=== PATIENT | male | born 1965 | race Two or more races ===

== ENCOUNTER 2016-09-11 19:03 | Emergency (ER) | payer OTHER ==
[2016-09-11] MEDS ORDERED: PROPARACAINE 0.5% 15 ML OPHT DROP LEFTEYE ONE (19:25)
[2016-09-11 19:30] VITALS: BP 137/75; PULSE 72; RESP 18; TEMP 97.9; O2SAT 96
[2016-09-11] MEDS ORDERED: PROPARACAINE 0.5% 15 ML OPHT DROP EACHEYE ONE (19:32)
--- NOTE | 2016-09-11 20:16 | UCPHY ---
H & P Time Seen by Provider: 09/11/16 19:46 Patient Type: Established HPI/ROS: CHIEF COMPLAINT: foreign body in eye HISTORY OF PRESENT ILLNESS: Patient is a 50-year-old male who presents to the emergency department with foreign body sensation in his left eye. The patient states he was at the [employer] when a glass broke in the store. He felt as though a piece of the glass went into his left eye. He now has mild discomfort in the left eye. No pain in the right eye per report. Denies any visual change. Patient sustained small abrasions on his fingers. No other injury. REVIEW OF SYSTEMS: Negative Past Medical/Surgical History: Denies Smoking Status: Never smoked Physical Exam: GENERAL: Well-appearing, in no acute distress, alert. Visual acuity: Noted. Eyelids: Normal inspection, everted for exam. There is a glass foreign body noted in his left eye. This is cube shaped with a 2-3 mm side. Conjunctiva and sclera: Left eye mildly injected. Right eye normal. No subconjunctival hemorrhage. No exudate. Corneas: Examined with fluorescein dye: Large abrasion in the left eye. This does overlie the pupil. No ulcer. No Mira sign. EOMs: Intact. Pupils: PERRL, normal accommodation. Anterior chambers: Normal inspection. No hyphema. No cells or flare. Posterior segments: Normal funduscopic exam Constitutional: Initial Vital Signs Temperature (C) 36.6 C 09/11/16 19:25 Heart Rate 72 09/11/16 19:25 Respiratory Rate 18 09/11/16 19:25 Blood Pressure 137/75 H 09/11/16 19:25 O2 Sat (%) 96 09/11/16 19:25 O2 Delivery Mode Room Air Allergies/Adverse Reactions: No Known Allergies Allergy (Unverified 06/07/11 10:47) Home Medications: Medication Instructions Recorded Diabetes Pill 09/11/16 oxyCODONE/APAP 5/325 [Percocet 1 - 2 tab PO Q4PRN PRN #9 tab 09/11/16 5/325 (*)] Medical Decision Making Procedures: Patient had his left eye irrigated with normal saline (500ml) ED Course/Re-evaluation: I discussed the plan with the patient and answered all his questions. Proparacaine drops were placed prior to examination. Examination included a slit -lamp. There was a notable foreign body in his left eye. After this foreign body was retrieved I did a complete examination to look for a 2nd foreign body. No was visualized. The patient did have noted corneal abrasion. I discussed this with the patient and answered all his questions. He was given ciprofloxacin drops. He will use these q.2 hours for the next 3 days. He will follow up with Ophthalmology tomorrow. Differential Diagnosis: My differential includes but is not limited to ocular foreign body, hyphema, globe rupture, conjunctivitis, corneal abrasion, corneal abscess - Data Points Medications Given: Discontinued Medications Proparacaine HCl (Alcaine 0.5%) 1 drops LEFTEYE ONCE ONE Stop: 09/11/16 19:26 Last Admin: 09/11/16 19: Dose: 2 drops Departure - Departure Disposition: Home, Routine, Self-Care Clinical Impression: Foreign body, eye Qualifiers: Encounter type: initial encounter Laterality: left Qualifier Code: (T15.92XA) Foreign body on external eye, part unspecified, left eye, initial encounter Corneal abrasion Qualifiers: Encounter type: initial encounter Laterality: left Qualifier Code: (S05.02XA) Injury of conjunctiva and corneal abrasion without foreign body, left eye, initial encounter Condition: Good Instructions: Corneal Abrasion (ED), Eye Foreign Body (ED) Additional Instructions: Return with increasing pain, visual change, or any other concerns. You need to apply 2 drops to your eye every 2 hours until follow-up with Ophthalmology. Referrals: SILVINA MANLEY,. [Primary Care Provider] - As per Instructions Ghassan Carrion MD [Medical Doctor] - 1 day without fail Prescriptions: oxyCODONE/APAP 5/325 [Percocet 5/325 (*)] 1 - 2 tab PO Q4PRN PRN #9 tab PRN Reason: For Moderate To Severe Pain - PQRS PQRS Measurement: My PQRS negative my PQRS negative my PQRS negative my PQRS negative 134: Depression screening and followup, PRIME [place]-PHQ2 (12 years and older) Over the last 2 weeks, how often have you been bothered by any of the following problems? 1. Feeling down, depressed, or hopeless? 2. Little interest or pleasure in doing things? Patient answered no to both 1 and 2 130: Documentation of medications. Reviewed all patient medications, doses, route and frequency. 226: Do you smoke? No.
[2016-09-11] MEDS ORDERED: OXYCODONE/APAP 5/325MG PREPACK#4 BTL TAKEHOME ONE (20:34)
[2016-09-11] MEDS ORDERED: CIPROFLOXACIN 0.3% DROPS PREPACK OPHT.BTL TAKEHOME ONE (20:47)
[2016-09-11] MEDS ORDERED: CIPROFLOXACIN 3.5 GM OPHT.OINT LEFTEYE SCH (22:00)
[2016-09-12] MEDS ORDERED: OXYCODONE/APAP 5/325MG PREPACK#4 BTL TAKEHOME ONE (10:41)
== END 2016-09-11 20:47 | disposition home or self-care (01) ==
LOC: CED 19:03
PROC: 08C1XZZ Extirpation of Matter from Left Eye, External Approach (ICD-10-PCS; principal; 2016-09-11)
DX: T15.92XA Foreign body on external eye, part unspecified, left eye, initial encounter (principal); S05.02XA Injury of conjunctiva and corneal abrasion without foreign body, left eye, initial encounter; S60.419A Abrasion of unspecified finger, initial encounter; W25.XXXA Contact with sharp glass, initial encounter; Y92.513 Shop (commercial) as the place of occurrence of the external cause
CPT/HCPCS: 99214-PO; G0463-PO

== ENCOUNTER 2016-09-13 17:28 | Emergency (ER) | payer SELFPAY | END 2016-09-13 17:50 | disposition left against medical advice (07) | LOC: CED 17:28 | DX: Z53.21 Procedure and treatment not carried out due to patient leaving prior to being seen by health care provider (principal) ==